=== PATIENT | female | born 1950 | race Caucasian/White ===

== ENCOUNTER → 2017-07-24 | Outpatient (CLI) | payer MEDICARE, OTHER ==
[~2017-07-24] MED LIST: ALEV1TAB PO; ASPI81TA85 PO; COUM2.5T17 PO; HYDR-3713 PO; LOPR1TAB6 PO; MELA10TA4 PO; MULT1TAB9 PO; SYNT50TA PO; TUMERIC PO
--- NOTE | 2017-07-24 11:11 | REP ---
CHEST, TWO VIEWS: There is no evidence of acute infiltrate. No pleural effusion is seen. The heart is normal in size. The mediastinal silhouette is unremarkable. The visualized osseous structures are intact. There are degenerative changes of the spine. IMPRESSION: No acute pulmonary disease. Signed by Jerad Shin MD 07/24/2017 01:25 P
[2017-07-24 11:47] LABS: MEAN CORPUSCULAR HGB CONC 32.1 g/dl (32.0-36.5); MEAN CORPUSCULAR VOLUME 90.5 fl (80.0-96.0); PLATELET COUNT, AUTOMATED 198 10^3/uL (150-450); RED CELL DISTRIBUTION WIDTH 12.5 % (11.5-14.5); WHITE BLOOD COUNT 6.9 10^3/uL (4.0-10.0)
[2017-07-24 11:59] LABS: INR 1.06
[2017-07-24 12:17] LABS: ALBUMIN 4.4 GM/DL (3.2-5.2); ALBUMIN/GLOBULIN RATIO 1.42 (1.00-1.93); ALKALINE PHOSPHATASE 68 U/L (45-117); ALT/SGPT 29 U/L (12-78); ANION GAP 5 MEQ/L (8-16); AST/SGOT 22 U/L (7-37); BILIRUBIN,TOTAL 0.6 MG/DL (0.2-1.0); BLOOD UREA NITROGEN 17 MG/DL (7-18); CALCIUM LEVEL 9.5 MG/DL (8.8-10.2); CARBON DIOXIDE LEVEL 33 MEQ/L (21-32); CHLORIDE LEVEL 103 MEQ/L (98-107); CREATININE FOR GFR 0.73 MG/DL (0.55-1.02); GLOMERULAR FILTRATION RATE > 60.0 (>45); GLUCOSE, FASTING 92 MG/DL (80-110); POTASSIUM SERUM 4.5 MEQ/L (3.5-5.1); SODIUM LEVEL 141 MEQ/L (136-145); TOTAL PROTEIN 7.5 GM/DL (6.4-8.2)
[2017-07-24 12:20] LABS: ERYTHROCYTE SEDIMENTATION RATE 7 mm/hr (0-30)
--- NOTE | 2017-07-25 06:43 | ECGEPIP ---
Stationary ECG Study [facility] Test Date: 2017-07-24 Pat Name: BISI HOLLIS Department: Room: - Gender: F Re Recording Mixer: CRISTIAN : 1950 Requested By: Shelley Hutson Order Number: [id number] Reading MD: Barry Hutchins Measurements Intervals [place] Rate: 64 P: 64 OR: 165 QRS: 61 QRSD: 94 T: 66 QT: 397 QTc: 411 Interpretive Statements SINUS RHYTHM Comparison tracing not on file Electronically Signed On 07-25-2017 6:43:15 EDT by Barry Hutchins
== END ==
LOC: M ADMPAT 09:34
PROVIDERS: ATTEND Orthopaedic Surgery
DX: Z01.818 Encounter for other preprocedural examination (principal); M17.12 Unilateral primary osteoarthritis, left knee; Z79.899 Other long term (current) drug therapy

== ENCOUNTER 2017-08-07 07:30 | Inpatient (IN) | payer MEDICARE, OTHER ==
[2017-07-24 10:07] VITALS: BP 122/78
--- NOTE | 2017-07-27 17:56 | CR ---
DATE OF CONSULTATION: 07/27/[address] Ladd thank you for asking me to see Ms. Jimena Gutierrez in consultation prior to her total left TKA. She is as you know a 67-year-old female who was enjoyed quite good health and is very active, but has a history of hypothyroidism, palpitations and presents for preop optimization today. The patient reports she continues to be very active. She has occasional palpitations but she does not get lightheaded, dizzy chest pain or short of breath with it. She has had a full cardiac evaluation in 2016, which showed no significant pathology and the patient was felt to be at low risk for cardiovascular complications. The patient reports progressive disability from left knee. She can walk and do whatever she wants but she must do it slowly and cautiously. She has been to physical therapy, shots and pain and disability have progressed. The patient does take an Aleve P.M. at bedtime. This does help her sleep. The patient is on the metoprolol for palpitations and has been on this for many years. Patient has history of hyperlipidemia, takes fish oil for this. The patient does have other arthralgias, myalgias. She is just established with Dr. Roper and presents with a prescription for an extensive blood draw for further evaluation of her arthritic symptoms. She reports she discontinue the glucosamine, chondroitin and is replaced with Tumeric. REVIEW OF SYSTEMS: Otherwise negative. Denying fevers or chills, chest pain or shortness of breath, nausea, vomiting. PAST MEDICAL HISTORY: 1. History of anemia, negative evaluation. 2. History of leukopenia, negative Hem/Onc eval. 3. Fibrocystic breast disease. Status post fibroid cyst aspiration Dr. Torres. 4. Palpitations, status post electrocardiogram, chest x-ray echo 2015 with cardiology with no pathology found. 5. Tobacco cessation 07/2009. 6. Low back pain secondary to disk herniation 1995. 7. Hysterectomy with left hysterectomy secondary to ovarian cyst and bleeding. 8. Malignant melanoma surgically removed by Dr. Rodriguez. Follows with dermatology regularly. 9. Osteoporosis. 10. Right bunion and bunionectomy 08/04. 11. Left knee a OA status post laparoscopic her status post arthroscopic surgery January 2016. 12. Hyperlipidemia. 13. Insomnia. PATIENT'S MEDICATIONS: She is on Tumeric daily, melatonin at bedtime Aleve p.m. at bedtime, levothyroxine daily, Restasis eye drops, lubricating tears eye drops, multivitamin daily, baby aspirin daily, metoprolol ER 25 daily. ALLERGIES: The patient's drug allergies MACRODANTIN. FAMILY HISTORY: Father at 72 from heart. Mom was in her 90s and had hypothyroidism and depression. A brother had heart disease in his 50s. A sister had heart disease in her 70s and hypothyroidism. Two grandparents in 60s of heart disease. SOCIAL HISTORY: Quit smoking at age 59 after 27 years of one pack a week. Retired from real estate. Consumes about four glasses of wine a week. PHYSICAL EXAMINATION: Thin female appearing younger than her stated age. Vital signs are weight 138 with a BMI of 22.7, blood pressure 116/68 with a heart rate of 75, O2 sat is 97%. HEENT exam: Head is normocephalic. Neck is supple. Pupils equal, reactive to light. Extraocular movements are intact. Conjunctivae not injected. Sclerae are anicteric. Vision grossly normal. Tympanic membranes, external auditory canals are normal. Tongue is midline. Posterior pharynx without inflammation. Neck is supple. No thyromegaly, JVD or carotid bruits. RESPIRATORY: Slight decrease in breath sounds throughout mild kyphosis. BREASTS: Exam deferred. CARDIOVASCULAR: Regular rate and rhythm, early soft systolic murmur. ABDOMEN: Soft, nontender. No hepatosplenomegaly. GYNECOLOGIC: Deferred. EXTREMITIES: She has some quite advanced arthritic changes of some of her DIP joints. NEUROLOGIC: Alert and oriented. Cranial nerves II-XII intact. LABORATORY DATA: 07/27/2017 and TSH is 3.95. 07/24/2017 normal PT/PTT. Med profile, liver panel, CBC, UA, urine culture, nasal culture. Chest x-ray shows no acute pathology. EKG 07/24/2017 normal sinus rhythm rate of 64, axis of 61. No late R-wave progression, some repolarization changes but no atrial or ventricular hypertrophy. EKG is compared to an EKG from 02/11/2016 with no significant change. IMPRESSION: Ms. Jimena Gutierrez is a 67-year-old female with cardiovascular risk factors positive for age, hyperlipidemia, is at low risk of cardiovascular complications and is felt to be optimized for the proposed surgical intervention. Risk can be further minimized by the following recommendations: 1. Hypothyroid. Take Levoxyl the levothyroxine a.m. of surgery. 2. Palpitations controlled. Take metoprolol as usual the evening prior to surgery. 3. Hyperlipidemia, aspirin, fish oil on hold 7 days before surgery. 4. Approved the use of Benadryl and melatonin as needed for sleep the evening prior to surgery. 5. Osteoporosis. Calcium and D on hold. 6. Osteoarthritis. NSAIDs on hold 7 days prior to surgery. Thank you very much for this consultation. Please call with questions or concerns.
--- NOTE | 2017-08-01 16:54 | HPE ---
DATE OF ADMISSION: 08/07/2017 CHIEF COMPLAINT: Left knee pain. HISTORY OF PRESENT ILLNESS: This is a pleasant 67-year-old female with progressively worsening left knee pain and stiffness. She has failed to improve with conservative treatment. She has elected for surgery for her continued symptoms. She has pain with weightbearing activities and activities of daily living. X-rays of her knee are notable for advanced osteoarthritis of the left knee joint. She has consented for a left total knee arthroplasty by Dr. Haresh Ladd. Medical optimization was performed by Dr. Lebron. ALLERGIES: MACRODANTIN. CURRENT MEDICATIONS: - Toprol 50 mg a day - thyroxine 50 mg a day - multivitamin - baby aspirin - turmeric PAST MEDICAL HISTORY: Includes hypothyroidism. PAST SURGICAL HISTORY: Includes hysterectomy, microdisdectomy, and a bunionectomy. SOCIAL HISTORY: This patient is retired. Does not smoke. Occasionally drinks alcohol. FAMILY HISTORY: Noncontributory. REVIEW OF SYSTEMS: This patient denies chest pain, heart palpitations, cough, wheezing, difficulty breathing and shortness of breath. She denies abdominal pain, nausea, vomiting, diarrhea or constipation. She denies recent upper respiratory infection or urinary tract infection symptoms. She does complain of persistent pain in her left knee. PHYSICAL EXAMINATION: General: She is a well-nourished, well-developed, in no acute distress, alert female patient. She ambulates with a moderate limp favoring the left lower extremity. She is not using assistive devices. Vital signs: She is 65 inches tall, weighs 140 pounds with a temperature of 99, pulse of 78, respirations of 16, blood pressure 116/68. Neck was supple without adenopathy or jugular venous distention. Lungs were clear to auscultation without rales or wheeze throughout. Heart: Regular rate and rhythm. Abdomen: Bowel sounds were present. Extremities: Examination of the knee revealed intact skin. She had decreased range of motion secondary to pain and stiffness. The limb is neurovascularly intact. LABORATORY DATA: Chest x-ray showed no acute cardiopulmonary disease processes. EKG showed sinus rhythm at 64 beats per minute. UA was within normal limits with a specific gravity of 1.003. Prothrombin time 13.9, INR 1.06, glucose 92, BUN 17, creatinine 0.73, sodium 141, potassium 4.5. CBC was within normal limits. Sedimentation rate was 7. Urine culture showed no growth and nasal and sinus culture showed normal marli. IMPRESSION: Symptomatic osteoarthritis of the left knee joint. PLAN: Consented for a left total knee arthroplasty by Dr. Haresh Ladd.
[2017-08-07] VITALS (7 sets, daily range): BP systolic 78–142; BP diastolic 60–82; O2SAT 97
[~2017-08-07] VITALS: Ht 165.1 cm; Wt 62.1 kg
[~2017-08-07 07:30] MED LIST changes: -COUM2.5T17 PO; -HYDR-3713 PO
[2017-08-07] MEDS ORDERED: LR 1,000 ML IV ONE (09:45)
[2017-08-07] MEDS ORDERED: ACETAMINOPHEN 500 MG TAB PO ONE (09:45)
[2017-08-07] MEDS ORDERED: MIDAZOLAM INJ 2 MG/2 ML VIAL (J2250) As Ordered ONE ×2 (11:56→12:59)
[2017-08-07] MEDS ORDERED: PROPOFOL 200 MG/20 ML VIAL As Ordered ONE (11:56)
[2017-08-07] MEDS ORDERED: fentaNYL 100 MCG/2 ML INJECTION (J3010) As Ordered ONE ×2 (11:56→12:59)
[2017-08-07] MEDS ORDERED: dexameTHASONE 4 MG/ML 1ML VIAL (J1100) As Ordered ONE (11:56)
[2017-08-07] MEDS ORDERED: LIDOCAINE 2% INJ 100 MG/5 ML SDV (FOR ANES.) As Ordered ONE (11:56)
[2017-08-07] MEDS ORDERED: ONDANSETRON 4MG/2ML VIAL (J2405) As Ordered ONE (11:56)
[2017-08-07] MEDS ORDERED: BUPIVACAINE HCL 0.25% 30 ML VIAL As Ordered ONE (12:49)
[2017-08-07] MEDS ORDERED: TRANEXAMIC ACID 100 MG/ML 10ML VIAL As Ordered ONE (12:49)
[2017-08-07] MEDS ORDERED: EPINEPHrine INJ 1 MG/ML 1ML AMP As Ordered ONE (12:49)
[2017-08-07] MEDS ORDERED: BUPIVACAINE LIPOSOME/PF 1.3% 20 ML VIAL (13.3MG/ML)(EXPAREL) As Ordered ONE (12:49)
[2017-08-07] MEDS ORDERED: ceFAZolin 1GM INJ (J0690) As Ordered ONE (12:49)
[2017-08-07] MEDS ORDERED: MIDAZOLAM INJ 2 MG/2 ML VIAL (J2250) IV ONE (14:00)
[2017-08-07] MEDS ORDERED: fentaNYL 100 MCG/2 ML INJECTION (J3010) IV ONE (14:00)
[2017-08-07] MEDS ORDERED: PHENYLephrine HCL 500 MCG/5 ML (100MCG/ML) SYRINGE (J2370) As Ordered ONE (14:39)
[2017-08-07] MEDS ORDERED: ePHEDrine SULFATE 25 MG/5 ML(5MG/ML) SYRINGE As Ordered ONE (15:06)
[2017-08-07] MEDS ORDERED: ROPIvacaine 0.5% 30 ML INJECTION (J2795) ONE (15:28)
[2017-08-07] MEDS ORDERED: dexameTHASONE 10 MG/1 ML VIAL PRES.FREE (J1100) ONE (15:28)
[2017-08-07] MEDS ORDERED: MORPHINE 1MG/ML IN 0.9% NACL 100ML IV BAG As Ordered ONE (15:51)
[2017-08-07] MEDS ORDERED: LR 1,000 ML IV SCH ×2 (16:15→16:30)
[2017-08-07] MEDS ORDERED: fentaNYL 100 MCG/2 ML INJECTION (J3010) IV PRN (16:15)
[2017-08-07] MEDS ORDERED: PERCOCET 5MG/325MG TAB PO PRN (16:15)
[2017-08-07] MEDS ORDERED: ONDANSETRON 4MG/2ML VIAL (J2405) IV PRN ×2 (16:15→16:30)
[2017-08-07] MEDS ORDERED: METOCLOPRAMIDE INJ 10MG/2ML VIAL (J2765) IV PRN (16:15)
[2017-08-07] MEDS ORDERED: MEPERIDINE INJ 25 MG/ML VIAL (J2175) IV PRN (16:15)
[2017-08-07] MEDS ORDERED: diphenhydrAMINE INJ 50MG/ML VIAL (J1200) IV PRN (16:30)
[2017-08-07] MEDS ORDERED: NALOXONE INJ 0.4 MG/1 ML VIAL (J2310) IV PRN (16:30)
[2017-08-07] MEDS ORDERED: EPIDURAL/PCA KEYS XX PRN (16:30)
[2017-08-07] MEDS ORDERED: NALBUPHINE HCL 10 MG/ML AMP (J2300) IV PRN (16:30)
[2017-08-07] MEDS ORDERED: MORPHINE 1MG/ML IN 0.9% NACL 100ML IV BAG IV PRN (16:30)
[2017-08-07] MEDS ORDERED: ACETAMINOPHEN TAB 650MG DOSE (2X325MG) PO PRN (16:30)
[2017-08-07] MEDS ORDERED: FLEET ENEMA PR PRN (16:30)
--- NOTE | 2017-08-07 18:21 | IPNPDOC ---
Subjective Date Seen The patient was seen on 08/07/17. Subjective Chief Complaint/HPI The patient is a 67-year-old female admitted with a reason for visit of Left Knee Arthritis. Events since last encounter Feeling well, no chest pain, not short of breath, ordered dinner. Pulmonary: Denies: Dyspnea, Cough Cardiovascular: Denies: Chest Pain Gastrointestinal: Denies: Nausea, Vomiting, Abdominal Pain Objective Physical Examination General Exam: Positive: Alert, No Acute Distress Chest Exam: Positive: Clear to auscultation, Negative: Rales, Rhonchi, Wheezing Heart Exam: Positive: Rate Normal, Regular Rhythm Abdomen Exam: Positive: BS Hypoactive, Soft, Negative: Tenderness Assessment /Plan Problems (1) Arthritis of left knee Problem Text: S?P TKA. Pain management, GI regimen, dvt prophylaxis, activity, discharge per ortho (2) Hypothyroid Status: Chronic Problem Text: on synthroid (3) Hyperlipemia Status: Chronic Problem Text: holding asa and fish oil (4) Palpitation Status: Chronic Problem Text: non currently- continue perioperative beta blockade Plan/VTE VTE Prophylaxis Ordered?: Yes VS, I&O, 24H, Fishbone Vital Signs/I&O Vital Signs Date Time Temp Pulse Resp B/P (MAP) Pulse Ox O2 Delivery O2 Flow Rate FiO2 08/07/17 17:45 97.0 87 12 120/70 (87) 100 Nasal Cannula 2.0 I&O- Last 24 Hours up to 6 AM 08/08/17 06:00 Intake Total 1220 ml Balance 1220 ml CAROLYN BERMAN MD Aug 07, 2017 18:21
--- NOTE | 2017-08-07 18:39 | RO ---
DATE OF PROCEDURE: 08/07/2017 PREPROCEDURE DIAGNOSIS: Left knee degenerative arthritis. POSTPROCEDURE DIAGNOSIS: Left knee degenerative arthritis. PROCEDURE: Left total knee arthroplasty using a size 4 narrow cruciate retaining femoral component with a size 3 tibial tray with a 10 mm rotating platform polyethylene insert and a 35 mm polyethylene button. All components were cemented. The prosthesis was made by [employer]. It was a PFC knee. SURGEON: Dr. Shelley Ladd STERILE TECHNICIAN: Mr. Tr Hanson ANESTHESIA: Spinal with left femoral nerve block. COMPLICATIONS: None. SPECIMENS: Joint surface. ESTIMATED BLOOD LOSS: Less than 20 mL. DESCRIPTION OF PROCEDURE: Antibiotics were given intravenously preoperatively, then successful left femoral nerve block and then a spinal anesthetic was induced. Tourniquet was placed on the left upper thigh and not inflated. Left lower extremity was carefully prepped and draped in the usual sterile fashion and then elevated. Then, after appropriate time-out, the tourniquet was inflated, then a longitudinal incision was made for a medial parapatellar approach to the knee. Bovie cautery was used to coagulate crossing vessels. Medial parapatellar arthrotomy was performed and subperiosteal dissection around the proximal, medial and lateral tibial plateaus was performed. Then, we everted the patella and flexed the knee and debrided the anterior cruciate ligament (ACL). Drill was placed down the center of the femoral canal, followed by the distal femoral cutting block set at 5 degree valgus cut at 10 mm resection level for a left knee. Block was pinned in position. Distal femoral cut performed. AP sizing jig measured for a size 4. It was pinned in position followed by the 3-degree external rotation block and then the 4-in-1 block applied. Then, the anterior, posterior, chamfer cuts performed, taking great care to protect the surrounding soft tissues. We then exposed the proximal tibia and used the extramedullary alignment jig to estimate being parallel to the mechanical axis of the tibia. We referenced off the medial tibial condyle, 4 mm resection level. It was pinned in position and then the extramedullary belen confirmed that we appeared to be parallel to the mechanical axis. Proximal tibial osteotomy was then performed, and then we placed the lamina geophysical prospector laterally and performed a completion medial meniscectomy, debridement of the posteromedial osteophytes. We then placed the lamina geophysical prospector medially and performed a completion lateral meniscectomy and debridement of the posterolateral osteophytes. We then used the spacer block and the 10 mm actually fit very nicely with good symmetry between the flexion and extension gaps. Good stability to varus/valgus AP stress testing. We then exposed the proximal tibia, sized for a #3 tibial tray, which was pinned in position, followed by the reamer and broach and then the trial polyethylene, then the femoral component was applied and brought the knee into extension, everted the patella, performed patellar osteotomy, drilled the lug holes and sized for a 35 button and then the trial prosthesis was applied and the patellofemoral tracking was anatomic. We drilled the lug holes for the femur and removed all of the trial components, injected Exparel in the periosteum of the femur and tibia, as well as the capsular incisions and then Mr. Hanson mixed the cement on the back table as I prepared the bony surfaces for cementing with a copious amount of pulsatile lavage irrigant solution. Then, after everything had been thoroughly dried, we cemented the tibial tray and removed excess cement, placed the polyethylene, then cemented the femoral component, removed excess cement, brought the knee into extension, everted the patella and then cemented the patellar button, held it with a clamp and then removed the excess cement. As the cement was hardening, I copiously pulsatile lavage irrigated out the knee joint and then applied the tranexamic acid and then began closing the arthrotomy at the apex with two #1 PDS sutures. The medial parapatellar area was closed with a #1 PDS suture, then the capsule was closed with a running #1 Stratafix, tourniquet released, irrigated again, closed the deep subdermal tissues with interrupted #2-0 PDS suture and the subcuticular closure was made, covered by the fibrin glue was used to close the skin. A dry sterile bulky dressing was applied, then she was transferred to the recovery room in stable condition. Mr. Hanson was critical to the success of the procedure by helping to prepare the patient for surgery, helped with appropriate soft tissue retraction and manipulating the leg as needed so I could perform the operation smoothly and efficiently, helped to close the wound, amongst many other tasks.
[2017-08-07] MEDS: METOPROLOL SUCC *XL* 25MG TAB (TopROL *XL*) PO SCH (20:33)
[2017-08-07] MEDS ORDERED: WARFARIN SOD 5 MG TAB PO ONE (21:00)
[2017-08-08 02:00] VITALS: BP 137/58
[2017-08-08 06:00] VITALS: BP 121/73
[2017-08-08] MEDS: LEVOTHYROXINE 50MCG TABLET (0.05MG) PO SCH (06:10)
[2017-08-08] MEDS ORDERED: PERCOCET 5MG/325MG TAB PO PRN (06:30)
[2017-08-08 07:42] LABS: MEAN CORPUSCULAR HEMOGLOBIN 29.6 pg (27.0-33.0); MEAN CORPUSCULAR HGB CONC 32.6 g/dl (32.0-36.5); MEAN CORPUSCULAR VOLUME 90.7 fl (80.0-96.0); PLATELET COUNT, AUTOMATED 152 10^3/uL (150-450); WHITE BLOOD COUNT 9.2 10^3/uL (4.0-10.0)
[2017-08-08 08:03] LABS: INR 0.97
[2017-08-08 08:12] LABS: ANION GAP 4 MEQ/L (8-16); BLOOD UREA NITROGEN 16 MG/DL (7-18); CALCIUM LEVEL 8.6 MG/DL (8.8-10.2); CARBON DIOXIDE LEVEL 30 MEQ/L (21-32); CHLORIDE LEVEL 105 MEQ/L (98-107); CREATININE FOR GFR 0.73 MG/DL (0.55-1.02); GLOMERULAR FILTRATION RATE > 60.0 (>45); GLUCOSE, FASTING 143 MG/DL (80-110); POTASSIUM SERUM 4.4 MEQ/L (3.5-5.1); SODIUM LEVEL 139 MEQ/L (136-145)
[2017-08-08] MEDS: MIRALAX *UNIT DOSE* 17GM PACKET PO SCH ×2 (08:30→09:00)
[2017-08-08] MEDS: MOM 30ML SUSPENSION UDC PO SCH ×2 (08:30→09:00)
[2017-08-08] MEDS: SENOKOT S TAB PO SCH ×2 (08:31→20:10)
[2017-08-08] MEDS: PERCOCET 5MG/325MG TAB PO PRN ×2 (08:31→12:30)
[2017-08-08] MEDS: ONDANSETRON 4 MG TAB (S0181) PO PRN (08:31)
[2017-08-08] MEDS ORDERED: ONDANSETRON 4MG/2ML VIAL (J2405) IV ONE (08:45)
[2017-08-08 10:00] VITALS: BP 117/69
--- NOTE | 2017-08-08 11:47 | IPNPDOC ---
Subjective Date Seen The patient was seen on 08/08/17. Subjective Chief Complaint/HPI The patient is a 67-year-old female admitted with a reason for visit of Left Knee Arthritis. Events since last encounter complaining of vomiting this morning and also last night , pain is controlled, no abdominal pain , no diarrhea, no fever or chills, no chest pain or SOB. Objective Physical Examination General Exam: Positive: Alert, No Acute Distress Eye Exam: Positive: PERRLA, Conjunctiva & lids normal, EOMI, Negative: Sclera icteric ENT Exam: Positive: Atraumatic, Mucous membr. moist/pink, Pharynx Normal Neck Exam: Positive: Supple, Negative: JVD, thyromegaly Chest Exam: Positive: Clear to auscultation, Negative: Rales, Rhonchi, Wheezing Heart Exam: Positive: Rate Normal, Regular Rhythm Abdomen Exam: Positive: BS Hypoactive, Soft, Negative: Tenderness Assessment /Plan Problems (1) S/P total knee arthroplasty Problem Text: For advanced osteoarthritis. Pain management, GI regimen, dvt prophylaxis, activity, discharge per ortho (2) Hypothyroid Status: Chronic Problem Text: on synthroid (3) Hyperlipemia Status: Chronic Problem Text: holding asa and fish oil (4) Palpitation Status: Chronic Problem Text: non currently- continue perioperative beta blockade Plan/VTE VTE Prophylaxis Ordered?: Yes VS, I&O, 24H, Epifaniobone Vital Signs/I&O Vital Signs Date Time Temp Pulse Resp B/P (MAP) Pulse Ox O2 Delivery O2 Flow Rate FiO2 08/08/17 10:00 98.1 71 13 117/69 (85) 99 Room Air 08/08/17 06:00 2.0 I&O- Last 24 Hours up to 6 AM 08/09/17 06:00 Intake Total 170 ml Balance 170 ml Laboratory Data 24H LABS Laboratory Tests 2 08/08/17 07:34: Nucleated Red Blood Cells % (auto) 0.0, Prothrombin Time 13.0, Prothromb Time International Ratio 0.97, Anion Gap 4L, Glomerular Filtration Rate > 60.0, Blood Urea Nitrogen 16, Creatinine 0.73, Sodium Level 139, Potassium Level 4.4, Chloride Level 105, Carbon Dioxide Level 30, Calcium Level 8.6L CBC/BMP Laboratory Tests 08/08/17 07:34 Red Blood Count 3.55 L, Mean Corpuscular Volume 90.7, Mean Corpuscular Hemoglobin 29.6, Mean Corpuscular Hemoglobin Concent 32.6, Red Cell Distribution Width 13.0, Calcium Level 8.6 L SIDDHARTHA HERNANDEZ MD Aug 08, 2017 11:47
--- NOTE | 2017-08-08 12:45 | REP ---
Clinical: Status post replacement. Technique: AP and cross-table lateral views of the left knee. Findings: Femoral and tibial hardware appears intact and normal in position and appearance. Overlying postsurgical changes include diffuse soft tissue swelling and subcutaneous emphysema. Impression: Normal appearance to the prosthetic hardware. Overlying postsurgical changes including swelling and subcutaneous emphysema. Signed by Reuben Finn MD 08/08/2017 12:37 P
[2017-08-08 14:00] VITALS: BP 100/60
[2017-08-08] MEDS: ONDANSETRON 4MG/2ML VIAL (J2405) IV PRN ×2 (16:01→20:11)
[2017-08-08] MEDS ORDERED: WARFARIN SOD 5 MG TAB PO ONE (17:00)
[2017-08-08] MEDS ORDERED: SCOPOLAMINE 1.5 MG TRANSDERMAL TOP SCH (18:00)
[2017-08-08] MEDS ORDERED: traMADol 50 MG TAB As Ordered ONE (18:51)
[2017-08-08] MEDS ORDERED: SCOPOLAMINE 1.5 MG TRANSDERMAL As Ordered ONE (18:51)
[2017-08-08] MEDS: traMADol 50 MG TAB PO PRN (18:57)
[2017-08-08] MEDS: LR 1,000 ML IV SCH (18:58)
[2017-08-08 20:11] VITALS: BP 116/66
[2017-08-08] MEDS: METOPROLOL SUCC *XL* 25MG TAB (TopROL *XL*) PO SCH (20:11)
[2017-08-08 22:00] VITALS: BP 116/66
[2017-08-08] MEDS ORDERED: traMADol 50 MG TAB PO ONE (22:25)
[2017-08-08] MEDS ORDERED: CALCIUM CARBONATE 500 MG CHEW U/D PO ONE (22:25)
[2017-08-09] MEDS: traMADol 50 MG TAB PO PRN (00:06)
[2017-08-09] MEDS ORDERED: MORPHINE 2 MG/ML 1ML SYRINGE IV ONE (02:00)
[2017-08-09] MEDS: LEVOTHYROXINE 50MCG TABLET (0.05MG) PO SCH (04:28)
[2017-08-09] MEDS: ONDANSETRON 4MG/2ML VIAL (J2405) IV PRN (04:29)
[2017-08-09] MEDS: NORCO, ANEXSIA 5/325MG TABLET (HYDROcodone/ACETAMINOPHEN) PO PRN ×3 (04:30→13:08)
[2017-08-09 06:00] VITALS: BP 131/73
[2017-08-09 07:02] LABS: MEAN CORPUSCULAR HEMOGLOBIN 29.7 pg (27.0-33.0); MEAN CORPUSCULAR HGB CONC 32.6 g/dl (32.0-36.5); MEAN CORPUSCULAR VOLUME 91.1 fl (80.0-96.0); PLATELET COUNT, AUTOMATED 137 10^3/uL (150-450); RED CELL DISTRIBUTION WIDTH 13.1 % (11.5-14.5); WHITE BLOOD COUNT 8.9 10^3/uL (4.0-10.0)
[2017-08-09 07:25] LABS: ANION GAP 5 MEQ/L (8-16); BLOOD UREA NITROGEN 16 MG/DL (7-18); CALCIUM LEVEL 8.7 MG/DL (8.8-10.2); CARBON DIOXIDE LEVEL 30 MEQ/L (21-32); CHLORIDE LEVEL 104 MEQ/L (98-107); CREATININE FOR GFR 0.63 MG/DL (0.55-1.02); GLOMERULAR FILTRATION RATE > 60.0 (>45); GLUCOSE, FASTING 123 MG/DL (80-110); POTASSIUM SERUM 4.1 MEQ/L (3.5-5.1); SODIUM LEVEL 139 MEQ/L (136-145)
[2017-08-09 07:37] LABS: INR 1.45
[2017-08-09] MEDS ORDERED: COUM2.5T17 PO (09:05)
[2017-08-09] MEDS ORDERED: HYDR-3713 PO (09:05)
[2017-08-09] MEDS: LR 1,000 ML IV SCH (09:31)
[2017-08-09] MEDS: MIRALAX *UNIT DOSE* 17GM PACKET PO SCH (09:31)
[2017-08-09] MEDS: SENOKOT S TAB PO SCH (09:31)
[2017-08-09] MEDS: MOM 30ML SUSPENSION UDC PO SCH (09:31)
[2017-08-09] MEDS: ONDANSETRON 4 MG TAB (S0181) PO PRN (09:35)
[2017-08-09 14:00] VITALS: BP 125/76
[2017-08-09] MEDS ORDERED: WARFARIN SOD 5 MG TAB PO ONE (17:00)
--- NOTE | 2017-08-11 16:51 | DSES ---
DATE OF ADMISSION: 08/07/2017 DATE OF DISCHARGE: 08/09/2017 ADMISSION DIAGNOSIS: Osteoarthritis left knee. OTHER DIAGNOSES: Hypothyroidism, elevated lipids, palpitations. DISCHARGE DIAGNOSIS: Osteoarthritis left knee status post left total knee arthroplasty. OPERATION PERFORMED: Left total knee arthroplasty. HISTORY: This a pleasant 67-year-old female patient with progressively worsening left knee pain and stiffness. She failed to improve with conservative management. She was admitted for elective knee replacement on the left side. HOSPITAL COURSE: The patient was admitted on day of surgery and underwent a left total knee arthroplasty which was uneventful. She did well in the postoperative period and her hospital course was without complications. She was up with physical therapy per their protocol and her pain was controlled. On day of discharge she was doing well, weightbearing as tolerated on her left lower extremity. She will use adjusted dose Coumadin and JEF stockings for 30 days postoperatively for DVT prophylaxis. She will resume her preoperative medications and diet. She was given instructions to include but not limited to wound monitoring and activity limitations. She will followup in our office in 10-14 days. She will resume her preoperative medications and diet and she will use oral pain medications for pain control. Please refer to the medical record further details.
== END 2017-08-09 15:50 | disposition home health service (06) | DRG 470 ==
LOC: M OR 09:36 → M MS5PR 17:30
PROVIDERS: ADMIT Orthopaedic Surgery; ATTEND Orthopaedic Surgery
PROC: 0SRD0J9 Replacement of Left Knee Joint with Synthetic Substitute, Cemented, Open Approach (ICD-10-PCS; principal; 2017-08-07 14:45)
DX: M17.12 Unilateral primary osteoarthritis, left knee (principal); E03.9 Hypothyroidism, unspecified; M81.0 Age-related osteoporosis without current pathological fracture; M54.9 Dorsalgia, unspecified; E78.5 Hyperlipidemia, unspecified; Z85.820 Personal history of malignant melanoma of skin; Z90.710 Acquired absence of both cervix and uterus; Z79.899 Other long term (current) drug therapy; Z88.8 Allergy status to other drugs, medicaments and biological substances; Z87.891 Personal history of nicotine dependence

== ENCOUNTER → 2017-08-28 | Outpatient (REF) | payer MEDICARE, OTHER ==
[~2017-08-28] MED LIST changes: +COUM2.5T17 PO; +HYDR-3713 PO
[2017-08-28 14:08] LABS: INR 1.45
== END ==
LOC: M LABDRAW1 11:43
PROVIDERS: ATTEND Orthopaedic Surgery
DX: Z79.01 Long term (current) use of anticoagulants (principal); Z47.1 Aftercare following joint replacement surgery; Z96.652 Presence of left artificial knee joint

== ENCOUNTER → 2017-08-31 | Outpatient (REF) | payer MEDICARE, OTHER ==
[2017-08-31 12:14] LABS: INR 1.55
== END ==
LOC: M LABDRAW1 10:40
PROVIDERS: ATTEND Orthopaedic Surgery
DX: Z47.1 Aftercare following joint replacement surgery (principal); Z96.652 Presence of left artificial knee joint; Z79.01 Long term (current) use of anticoagulants

== ENCOUNTER → 2017-09-04 | Outpatient (REF) | payer MEDICARE, OTHER ==
[2017-09-04 13:09] LABS: INR 1.61
== END ==
LOC: M LABDRAW1 11:36
PROVIDERS: ATTEND Orthopaedic Surgery
DX: Z96.652 Presence of left artificial knee joint (principal); Z47.1 Aftercare following joint replacement surgery; Z79.01 Long term (current) use of anticoagulants

== ENCOUNTER → 2017-12-12 | Outpatient (CLI) | payer MEDICARE, OTHER | LOC: M WHC 11:39 | DX: Z13.820 Encounter for screening for osteoporosis (principal); M81.0 Age-related osteoporosis without current pathological fracture | CPT/HCPCS: 77080 ==

== ENCOUNTER → 2018-11-26 | Outpatient (REF) | payer MEDICARE, OTHER | LOC: M SFHCPLAZ 18:50 | PROVIDERS: ATTEND Dermatology | DX: D14.0 Benign neoplasm of middle ear, nasal cavity and accessory sinuses (principal) ==

== ENCOUNTER → 2019-08-26 | Outpatient (CLI) | payer MEDICARE, OTHER ==
--- NOTE | 2019-08-26 12:32 | REP ---
Clinical: Pelvic and perineal pain. Technique: Transvaginal ultrasound examination. Findings: The patient is noted to be status post total hysterectomy/ left oophorectomy. Right ovary is not visualized. No pelvic free fluid or mass lesion appreciated. Impression: Evidence of prior hysterectomy and oophorectomy. No obvious pelvic abnormality by ultrasound. Electronically Signed by Reuben Finn MD 08/26/2019 12:23 P
== END ==
LOC: M RAD 11:46
PROVIDERS: ATTEND Obstetrics & Gynecology
DX: R10.2 Pelvic and perineal pain (principal); Z90.710 Acquired absence of both cervix and uterus

== ENCOUNTER → 2020-06-25 | Outpatient (CLI) | payer MEDICARE, OTHER ==
[~2020-06-25] MED LIST changes: +ALLE180T33 PO; +APPLCAP PO; -ASPI81TA85 PO; +ASPI81TA86 PO; +LAST0.25 OU; +MAGN400C2 PO; +MELA10TA2 PO; +PREVAGEN PO; +REST0.05 OU; +RHOP0.02 OU
== END ==
LOC: M LABSMTC 11:01
PROVIDERS: ATTEND Anesthesiology
DX: Z01.812 Encounter for preprocedural laboratory examination (principal); Z20.828 Contact with and (suspected) exposure to other viral communicable diseases
CPT/HCPCS: C9803; U0003

== ENCOUNTER 2020-06-30 08:28 | Day surgery (SDC) | payer MEDICARE, OTHER ==
[~2020-06-30] VITALS: Ht 165.1 cm; Wt 59.0 kg
[~2020-06-30 08:28] MED LIST changes: +NS 1,000 ML IV ONE
[2020-06-30] MEDS ORDERED: propofoL 200 MG/20 ML VIAL As Ordered ONE (08:50)
[2020-06-30] MEDS ORDERED: LIDOCAINE 2% 100MG/5ML SDV (FOR ANES.) As Ordered ONE (08:50)
--- NOTE | 2020-06-30 10:08 | ROOR ---
Patient Name: Jimena Gutierrez Procedure Date: 06/30/2020 9:42 AM Date of : 1950 Age: 69 Room: [facility] Gender: Female Note Status: Finalized Procedure: Colonoscopy Indications: High risk colon cancer surveillance: Personal history of colonic polyps, Family history of colon cancer in a first-degree relative age 75 years Providers: Barry BAUM MD Referring MD: Melyssa Blevins Requesting Provider: Medicines: Monitored Anesthesia Care Complications: No immediate complications. Procedure: Pre-Anesthesia Assessment: - The heart rate, respiratory rate, oxygen saturations, blood pressure, adequacy of pulmonary ventilation, and response to care were monitored throughout the procedure. The Colonoscope was introduced through the anus and advanced to the cecum, identified by appendiceal orifice and ileocecal valve. The colonoscopy was performed without difficulty. The patient tolerated the procedure well. The quality of the bowel preparation was good. Findings: The perianal and digital rectal examinations were normal. The entire examined colon appeared normal on direct and retroflexion views. Impression: - Small internal hemorrhoids. - The entire examined colon is normal on direct and retroflexion views. - No specimens collected. Recommendation: - Repeat colonoscopy in 5 years for screening purposes. Barry Baum MD Barry BAUM MD 06/30/2020 10:08:13 AM Electronically signed by Barry BAUM MD Number of Addenda: 0 Note Initiated On: 06/30/2020 9:42 AM Estimated Blood Loss: Estimated blood loss: none.
[2020-06-30 10:31] VITALS: BP 130/70
== END 2020-06-30 10:31 | disposition home or self-care (01) ==
LOC: M OPP 08:28
PROVIDERS: ATTEND Internal Medicine Gastroenterology
DX: Z12.11 Encounter for screening for malignant neoplasm of colon (principal); Z86.010 Personal history of colon polyps; Z80.0 Family history of malignant neoplasm of digestive organs; K64.8 Other hemorrhoids; I10 Essential (primary) hypertension; E03.9 Hypothyroidism, unspecified; M81.0 Age-related osteoporosis without current pathological fracture; Z87.891 Personal history of nicotine dependence; Z88.8 Allergy status to other drugs, medicaments and biological substances; Z79.899 Other long term (current) drug therapy; Z82.49 Family history of ischemic heart disease and other diseases of the circulatory system

== ENCOUNTER → 2020-08-25 | Outpatient (CLI) | payer SELFPAY ==
[~2020-08-25] MED LIST changes: -NS 1,000 ML IV ONE
== END ==
LOC: M LABSMTC 13:40
PROVIDERS: ATTEND Pediatrics
DX: Z20.828 Contact with and (suspected) exposure to other viral communicable diseases (principal)

== ENCOUNTER → 2020-10-21 | Outpatient (CLI) | payer MEDICARE, OTHER | LOC: M LABSMTC 14:01 | PROVIDERS: ATTEND Family Medicine | DX: Z20.822 Contact with and (suspected) exposure to COVID-19 (principal) | CPT/HCPCS: C9803; U0003 ==

== ENCOUNTER → 2020-11-01 | Outpatient (REF) | payer MEDICARE, OTHER | LOC: M LAB REF 11:41 | PROVIDERS: ATTEND Physician Assistant Medical | DX: R19.4 Change in bowel habit (principal) ==

== ENCOUNTER → 2020-11-25 | Outpatient (CLI) | payer MEDICARE, OTHER ==
[~2020-11-25] MED LIST changes: +GASTROGRAFIN SOLUTION 30ML (Q9963) As Ordered ONE; +ISOVUE-370 76% 100ML VIAL As Ordered ONE
--- NOTE | 2020-11-25 15:06 | REP ---
INDICATION: LOWER ABD PAIN, ABD DISTENSION. COMPARISON: None TECHNIQUE: Axial contrast-enhanced images from the lung bases to the pubic symphysis using oral and 100 cc Isovue 370 intravenous contrast material. Delayed images of the abdomen along with coronal and sagittal reformations obtained. This CT examination was performed using the following dose reduction techniques: Automated exposure control, adjustment of mA and/or kv according to the patient's size, and the use of iterative reconstruction technique. FINDINGS: Lung bases are clear. Visualized heart and pericardium normal. Liver, spleen, pancreas, gallbladder, bilateral adrenal glands and kidneys are normal. Small 1.5 cm incidental left renal cyst noted. Mucosal thickening involving the rectosigmoid colon may represent an acute infectious/inflammatory colitis and should be correlated clinically. Remainder of the small and large bowel is grossly unremarkable. Normal terminal ileum and appendix identified in the right lower quadrant. Pelvis demonstrates normal bladder and evidence for prior hysterectomy. No ascites. No free air. No intraperitoneal or retroperitoneal adenopathy. Abdominal aorta and vasculature appear normal. Musculoskeletal structures are intact and without acute osseous abnormality. IMPRESSION: 1. Mucosal thickening involving the rectosigmoid colon suspicious for infectious/inflammatory colitis. Correlation is recommended. No associated bowel obstruction, perforation, ascites or drainable collection. <Electronically signed by Reuben Finn > 11/25/20 [id number]
== END ==
LOC: M RAD 13:03
PROVIDERS: ATTEND Physician Assistant Medical
DX: K63.89 Other specified diseases of intestine (principal); R10.30 Lower abdominal pain, unspecified; R14.0 Abdominal distension (gaseous)
CPT/HCPCS: 74177; Q9963; Q9967

== ENCOUNTER 2021-03-11 18:37 | Emergency (ER) | payer MEDICARE, OTHER ==
[~2021-03-11] VITALS: Ht 165.1 cm; Wt 61.0 kg
[~2021-03-11 18:37] MED LIST changes: -GASTROGRAFIN SOLUTION 30ML (Q9963) As Ordered ONE; -ISOVUE-370 76% 100ML VIAL As Ordered ONE
[2021-03-11] MEDS ORDERED: FLUORESCEIN OPHTH 1 MG STRIP XX ONE (18:55)
[2021-03-11] MEDS ORDERED: PROPARACAINE 0.5% OPHTH SOL 15ML XX ONE (18:55)
[2021-03-11] MEDS ORDERED: BOOSTRIX/ADACEL VACCINE (DIPHTH/PERTUSS/ACELL/TETANUS) 0.5ML SYR IM ONE (21:45)
[2021-03-11] MEDS ORDERED: ACETAMINOPHEN 500 MG TAB PO ONE (21:45)
[2021-03-11] MEDS ORDERED: DOXYCYCLINE HYCLATE 100MG TABLET PO ONE (22:25)
[2021-03-11] MEDS ORDERED: OFLOXACIN 0.3 % (OCUFLOX) OPTH SOL 5ML OD STA (22:28)
[2021-03-11] MEDS ORDERED: ISOVUE-370 76% 100ML VIAL As Ordered ONE (22:54)
[2021-03-11 23:04] LABS: BASO % 0.3 % (0.0-1.0); EOS % 0.3 % (0.0-3.0); HEMATOCRIT 44.6 % (36.0-47.0); HEMOGLOBIN 14.6 g/dl (12.0-15.5); LYMPH # 2.1 10^3/uL (1.5-5.0); LYMPH % 20.1 % (24.0-44.0); MEAN CORPUSCULAR HEMOGLOBIN 29.9 pg (27.0-33.0); MEAN CORPUSCULAR HGB CONC 32.7 g/dl (32.0-36.5); MEAN CORPUSCULAR VOLUME 91.2 fl (80.0-96.0); MONO # 0.7 10^3/uL (0.0-0.8); MONO % 6.6 % (2.0-8.0); NEUTROPHILS # 7.4 10^3/uL (1.5-8.5); NEUTROPHILS % 72.3 % (36.0-66.0); PLATELET COUNT, AUTOMATED 186 10^3/uL (150-450); RED BLOOD COUNT 4.89 10^6/uL (4.00-5.40); WHITE BLOOD COUNT 10.3 10^3/uL (4.0-10.0)
[2021-03-12] MEDS ORDERED: DOXY1CAP62 PO (00:24)
[2021-03-12] MEDS ORDERED: MOXI0.5S OD (00:25)
--- NOTE | 2021-03-12 00:27 | REPVR ---
PROCEDURE INFORMATION: Exam: CT Orbits With Contrast Exam date and time: 03/11/2021 11:01 PM Age: 70 years old Clinical indication: Other: RT eye discharge; Eye pain; Right; Additional info: Pain with eom's, R/O orbital cellulitis TECHNIQUE: Imaging protocol: Computed tomography images of the orbits with intravenous contrast. Radiation optimization: All CT scans at this facility use at least one of these dose optimization techniques: automated exposure control; mA and/or kV adjustment per patient size (includes targeted exams where dose is matched to clinical indication); or iterative reconstruction. Contrast material: ISO; Contrast volume: 75 ml; Contrast route: INTRAVENOUS (IV); COMPARISON: No relevant prior studies available. FINDINGS: Orbits: Mild asymmetric thickening and enhancement of the conjunctiva of the right orbit. Right globe and orbit are otherwise unremarkable. No postseptal orbital inflammatory changes. No mass or abscess. Paranasal sinuses: Clear. No air-fluid levels. Bones/joints: No acute fracture. Soft tissues: Mild right periorbital soft tissue swelling. No abscess. IMPRESSION: 1. Mild asymmetric thickening and enhancement of the conjunctiva of the right orbit. Possible conjunctivitis versus preseptal cellulitis. 2. No postseptal abscess or inflammatory changes. Electronically signed by: Ray Posadas On 03/12/2021 00:27:43 AM
[2021-03-12] MEDS ORDERED: CLIN150C15 PO (00:37)
[2021-03-12] MEDS ORDERED: CLINDAMYCIN 150MG CAPSULE PO ONE (00:45)
[2021-03-12 01:01] VITALS: BP 138/85
--- NOTE | 2021-03-12 06:36 | ED PDOC ---
Post-Departure Follow-Up ct orbit faxed to dr salmeron and dr chavez for fu Dionte Shoemaker MD Mar 12, 2021 06:36
== END 2021-03-12 01:13 | disposition home or self-care (01) ==
LOC: M ED 18:37
DX: H10.31 Unspecified acute conjunctivitis, right eye (principal); H40.9 Unspecified glaucoma; H20.00 Unspecified acute and subacute iridocyclitis; S05.01XA Injury of conjunctiva and corneal abrasion without foreign body, right eye, initial encounter; L03.213 Periorbital cellulitis; H20.051 Hypopyon, right eye; H40.051 Ocular hypertension, right eye; I48.91 Unspecified atrial fibrillation; E03.9 Hypothyroidism, unspecified; M81.0 Age-related osteoporosis without current pathological fracture; Z79.899 Other long term (current) drug therapy; Z88.8 Allergy status to other drugs, medicaments and biological substances
CPT/HCPCS: 70481; 80047; 85025; 90471; 90715; 99284; Q9967

== ENCOUNTER → 2021-07-23 | Outpatient (REF) | payer MEDICARE, OTHER ==
[~2021-07-23] MED LIST changes: +CLIN150C17 PO; +DOXY-443 PO; +MOXI0.5S OD
== END ==
LOC: M LAB REF 14:46
PROVIDERS: ATTEND Dermatology
DX: L81.4 Other melanin hyperpigmentation (principal); L57.0 Actinic keratosis

== ENCOUNTER → 2021-09-24 | Outpatient (REF) | LOC: M LABSMTC 10:31 | PROVIDERS: ATTEND Pediatrics | DX: Z11.52 Encounter for screening for COVID-19 (principal) ==

== ENCOUNTER → 2022-01-12 | Outpatient (REF) | payer MEDICARE, OTHER ==
[2022-01-12 21:00] LABS: FOLATE 6.8 NG/ML; THYROGLOBULIN ANTIBODY 16.1 U/ML (<60.0); THYROID PEROXIDASE ANTIBODY 1013.6 U/ML (<60.0)
== END ==
LOC: M LAB REF 16:16
PROVIDERS: ATTEND Registered Nurse
DX: E03.9 Hypothyroidism, unspecified (principal); R20.2 Paresthesia of skin

== ENCOUNTER 2022-03-30 12:18 | Emergency (ER) | payer MEDICARE, OTHER ==
[~2022-03-30] VITALS: Ht 165.1 cm; Wt 54.9 kg
[2022-03-30] MEDS ORDERED: SYNT75TA (12:28)
[2022-03-30] MEDS ORDERED: METO1TAB32 (12:28)
[2022-03-30] MEDS ORDERED: ACET250T2 (12:28)
[2022-03-30] MEDS ORDERED: TRAV2.5D (12:28)
[2022-03-30] MEDS ORDERED: FLUO1OPD (12:28)
[2022-03-30] MEDS ORDERED: KETOROLAC 30 MG/ML 1ML VIAL IV ONE (13:20)
[2022-03-30 14:56] LABS: BASO % 0.2 % (0.0-1.0); EOS % 0.1 % (0.0-3.0); HEMOGLOBIN 12.9 g/dl (12.0-15.5); LYMPH # 0.8 10^3/uL (1.5-5.0); MEAN CORPUSCULAR HEMOGLOBIN 29.5 pg (27.0-33.0); MEAN CORPUSCULAR HGB CONC 32.3 g/dl (32.0-36.5); MEAN CORPUSCULAR VOLUME 91.5 fl (80.0-96.0); MONO # 0.5 10^3/uL (0.0-0.8); MONO % 5.5 % (2.0-8.0); NEUTROPHILS % 84.9 % (36.0-66.0); PLATELET COUNT, AUTOMATED 182 10^3/uL (150-450); RED BLOOD COUNT 4.37 10^6/uL (4.00-5.40); WHITE BLOOD COUNT 9.4 10^3/uL (4.0-10.0)
[2022-03-30 15:18] LABS: ALBUMIN 3.9 GM/DL (3.2-5.2); BILIRUBIN,DIRECT 0.2 MG/DL (0.0-0.2); BILIRUBIN,TOTAL 0.7 MG/DL (0.2-1.0); CALCIUM LEVEL 9.1 MG/DL (8.8-10.2); CREATININE FOR GFR 1.18 MG/DL (0.55-1.30); GLOMERULAR FILTRATION RATE 47.9 (>39); TOTAL PROTEIN 6.9 GM/DL (6.4-8.2)
[2022-03-30] MEDS ORDERED: KETO10TAB PO (15:26)
[2022-03-30] MEDS ORDERED: FLOM0.4C39 PO (15:27)
[2022-03-30 16:02] VITALS: BP 148/72
== END 2022-03-30 16:06 | disposition home or self-care (01) ==
LOC: M ED 12:18
DX: N20.0 Calculus of kidney (principal); Z88.1 Allergy status to other antibiotic agents; Z79.899 Other long term (current) drug therapy; Z79.890 Hormone replacement therapy
CPT/HCPCS: 74176; 80048; 80076; 81001; 83690; 85025; 96374; 99284; J1885

== ENCOUNTER → 2022-04-12 | Outpatient (REF) | payer MEDICARE, OTHER ==
[~2022-04-12] MED LIST changes: +ACET250T2; +FLOM0.4C39 PO; +FLUO1OPD; +KETO10TAB PO; +METO1TAB32; +SYNT75TA; +TRAV2.5D
[2022-04-19 10:08] LABS: CA Oxalate Dihy 20 % (.); Size 3x3 mm (.)
== END ==
LOC: M SMT 12:44
PROVIDERS: ATTEND Urology
DX: N13.2 Hydronephrosis with renal and ureteral calculous obstruction (principal)

== ENCOUNTER → 2022-08-11 | Outpatient (CLI) | payer MEDICARE, OTHER | LOC: M RAD 10:56 | PROVIDERS: ATTEND Physician Assistant | DX: N20.2 Calculus of kidney with calculus of ureter (principal); N13.0 Hydronephrosis with ureteropelvic junction obstruction ==

== ENCOUNTER → 2022-09-28 | Outpatient (REF) | payer MEDICARE, OTHER | LOC: M SFHCDERM 17:48 | PROVIDERS: ATTEND Physician Assistant | DX: L57.0 Actinic keratosis (principal) ==

== ENCOUNTER → 2022-10-13 | Outpatient (CLI) | payer MEDICARE, OTHER | LOC: M PLAIMG 09:51 | PROVIDERS: ATTEND Physician Assistant | DX: N20.0 Calculus of kidney (principal) ==

== ENCOUNTER → 2022-11-01 | Outpatient (CLI) | payer MEDICARE, OTHER | LOC: M WHC 10:47 | PROVIDERS: ATTEND Internal Medicine | DX: M81.0 Age-related osteoporosis without current pathological fracture (principal) ==

== ENCOUNTER → 2023-05-08 | Outpatient (CLI) | payer MEDICARE, OTHER | LOC: M RAD 10:28 | PROVIDERS: ATTEND Physician Assistant | DX: N20.0 Calculus of kidney (principal) ==

== ENCOUNTER → 2023-06-09 | Outpatient (CLI) | payer MEDICARE, OTHER ==
[2023-06-09 15:29] LABS: BLOOD UREA NITROGEN 25 MG/DL (9-23); CALCIUM LEVEL 9.7 MG/DL (8.3-10.6); CARBON DIOXIDE LEVEL 32 MMOL/L (20-31); CHLORIDE LEVEL 106 MMOL/L (98-107); CREATININE FOR GFR 0.94 MG/DL (0.55-1.30); GLOMERULAR FILTRATION RATE > 60.0 (>39); GLUCOSE, FASTING 82 MG/DL (74-106); POTASSIUM SERUM 4.7 MMOL/L (3.5-5.1); SODIUM LEVEL 142 MMOL/L (136-145)
== END ==
LOC: M PLALAB 10:21
PROVIDERS: ATTEND Internal Medicine Endocrinology, Diabetes & Metabolism
DX: M81.0 Age-related osteoporosis without current pathological fracture (principal)

== ENCOUNTER → 2023-11-08 | Outpatient (CLI) | payer MEDICARE, OTHER | LOC: M RAD 13:47 | PROVIDERS: ATTEND Physician Assistant | DX: N20.0 Calculus of kidney (principal) ==

== ENCOUNTER → 2023-11-21 | Outpatient (CLI) | payer MEDICARE, OTHER ==
[2023-11-21 14:35] LABS: TOTAL 25(OH) VITAMIN D 33.8 NG/ML (20.0-100.0)
== END ==
LOC: M PLALAB 11:06
PROVIDERS: ATTEND Nurse Practitioner Family
DX: M81.0 Age-related osteoporosis without current pathological fracture (principal)

== ENCOUNTER → 2024-01-17 | Outpatient (REF) | payer MEDICARE, OTHER ==
[~2024-01-17] MED LIST changes: +ACET250T18; -ACET250T2
== END ==
LOC: M SFHCDERM 13:22
PROVIDERS: ATTEND Nurse Practitioner Family
DX: D04.22 Carcinoma in situ of skin of left ear and external auricular canal (principal)

== ENCOUNTER 2024-02-29 13:15 | Emergency (ER) | payer MEDICARE, OTHER ==
[~2024-02-29] VITALS: Ht 165.1 cm; Wt 52.1 kg
[2024-02-29 13:15] VITALS: TEMP 97.5
[~2024-02-29 13:15] MED LIST changes: +DOXY-323 PO; -DOXY-443 PO
[2024-02-29 16:32] LABS: BASO % 0.6 % (0.0-1.0); EOS # 0.2 10^3/uL (0.0-0.5); EOS % 2.6 % (0.0-3.0); HEMATOCRIT 34.9 % (36.0-47.0); HEMOGLOBIN 11.6 g/dl (12.0-15.5); LYMPH # 1.6 10^3/uL (1.5-5.0); LYMPH % 23.7 % (24.0-44.0); MEAN CORPUSCULAR HEMOGLOBIN 30.4 pg (27.0-33.0); MEAN CORPUSCULAR HGB CONC 33.2 g/dl (32.0-36.5); MEAN CORPUSCULAR VOLUME 91.6 fl (80.0-96.0); MONO # 0.5 10^3/uL (0.0-0.8); MONO % 7.2 % (2.0-8.0); NEUTROPHILS # 4.5 10^3/uL (1.5-8.5); NEUTROPHILS % 65.6 % (36.0-66.0); PLATELET COUNT, AUTOMATED 186 10^3/uL (150-450); RED BLOOD COUNT 3.81 10^6/uL (4.00-5.40); WHITE BLOOD COUNT 6.9 10^3/uL (4.0-10.0)
[2024-02-29 16:44] LABS: PARTIAL THROMBOPLASTIN TIME 24.2 SECONDS (24.8-34.2); PROTHROMBIN TIME 12.9 SECONDS (12.5-14.5)
[2024-02-29 17:19] LABS: ALBUMIN 4.2 G/DL (3.2-5.2); BILIRUBIN,DIRECT 0.1 MG/DL (<0.4); BILIRUBIN,TOTAL 0.5 MG/DL (0.3-1.2); CREATININE FOR GFR 1.55 MG/DL (0.55-1.30); GLOMERULAR FILTRATION RATE 34.8 (>39); POTASSIUM SERUM 3.8 MMOL/L (3.5-5.1); TOTAL PROTEIN 7.1 G/DL (5.7-8.2)
[2024-02-29 17:26] LABS: CALCIUM LEVEL 12.5 MG/DL (8.3-10.6)
[2024-02-29 19:51] VITALS: BP 124/73; O2SAT 100
[2024-03-01] MEDS ORDERED: AMOX875T2 PO (16:49)
== END 2024-02-29 21:33 | disposition left against medical advice (07) ==
LOC: M ED 13:15
DX: Z53.21 Procedure and treatment not carried out due to patient leaving prior to being seen by health care provider (principal)

== ENCOUNTER 2024-03-01 10:34 | Emergency (ER) | payer MEDICARE, OTHER ==
[~2024-03-01] VITALS: Ht 165.1 cm; Wt 53.0 kg
[2024-03-01 15:43] LABS: BASO % 0.6 % (0.0-1.0); EOS # 0.2 10^3/uL (0.0-0.5); EOS % 2.4 % (0.0-3.0); HEMATOCRIT 35.8 % (36.0-47.0); HEMOGLOBIN 11.7 g/dl (12.0-15.5); LYMPH # 1.6 10^3/uL (1.5-5.0); MEAN CORPUSCULAR HEMOGLOBIN 30.4 pg (27.0-33.0); MEAN CORPUSCULAR HGB CONC 32.7 g/dl (32.0-36.5); MONO # 0.5 10^3/uL (0.0-0.8); MONO % 7.7 % (2.0-8.0); PLATELET COUNT, AUTOMATED 186 10^3/uL (150-450); RED BLOOD COUNT 3.85 10^6/uL (4.00-5.40); WHITE BLOOD COUNT 6.3 10^3/uL (4.0-10.0)
[2024-03-01] MEDS: NS 500 ML IV ONE (15:44)
[2024-03-01] MEDS ORDERED: ISOVUE-370 76% 100ML VIAL As Ordered ONE (15:45)
[2024-03-01 15:53] LABS: AMORPHOUS SEDIMENT SMALL (NEGATIVE); APPEARANCE, URINE CLOUDY (CLEAR); BACTERIA, URINE AUTO NEGATIVE (NEGATIVE); BILIRUBIN, URINE AUTO NEGATIVE (NEGATIVE); BLOOD, URINE BLOOD NEGATIVE (NEGATIVE); COLOR, URINE YELLOW (YELLOW); GLUCOSE, URINE (UA) AUTO NEGATIVE (NEGATIVE); KETONE, URINE AUTO NEGATIVE (NEGATIVE); LEUKOCYTE ESTERASE, URINE AUTO TRACE (NEGATIVE); NITRITE, URINE AUTO NEGATIVE (NEGATIVE); PROTEIN, URINE AUTO NEGATIVE (NEGATIVE); RBC, URINE AUTO 0 /HPF (0-3); SQUAMOUS EPITHELIAL CELL UR AU 0 /HPF (0-6); UROBILINOGEN, URINE AUTO 0.2 mg/dL (0.0-2.0); WBC, URINE AUTO 5 /HPF (0-3)
[2024-03-01 16:07] LABS: LIPASE 41 U/L (12-53)
[2024-03-01 16:10] LABS: ALBUMIN 4.2 G/DL (3.2-5.2); ALKALINE PHOSPHATASE 75 U/L (46-116); ALT/SGPT 25 U/L (7.0-40); AST/SGOT 24 U/L (<34); BILIRUBIN,DIRECT < 0.1 MG/DL (<0.4); BILIRUBIN,TOTAL 0.3 MG/DL (0.3-1.2); BLOOD UREA NITROGEN 31 MG/DL (9-23); CALCIUM LEVEL 11.7 MG/DL (8.3-10.6); CARBON DIOXIDE LEVEL 31 MMOL/L (20-31); CHLORIDE LEVEL 105 MMOL/L (98-107); CREATININE FOR GFR 1.55 MG/DL (0.55-1.30); GLOMERULAR FILTRATION RATE 34.8 (>39); GLUCOSE, FASTING 92 MG/DL (74-106); POTASSIUM SERUM 4.1 MMOL/L (3.5-5.1); SODIUM LEVEL 141 MMOL/L (136-145); TOTAL PROTEIN 7.2 G/DL (5.7-8.2)
[2024-03-01] MEDS ORDERED: AMOX875T2 PO (16:49)
[2024-03-01 16:59] VITALS: BP 130/80; TEMP 97.3; O2SAT 97
== END 2024-03-01 17:04 | disposition home or self-care (01) ==
LOC: M ED 10:34
DX: N39.0 Urinary tract infection, site not specified (principal); K52.9 Noninfective gastroenteritis and colitis, unspecified; I48.91 Unspecified atrial fibrillation; E03.9 Hypothyroidism, unspecified; Z88.8 Allergy status to other drugs, medicaments and biological substances; Z79.2 Long term (current) use of antibiotics; Z79.899 Other long term (current) drug therapy
CPT/HCPCS: 74177; 80047; 80048; 80076; 81001; 83690; 85025; 87507; 96360; 99284; Q9967

== ENCOUNTER → 2024-05-02 | Outpatient (CLI) | payer MEDICARE, OTHER ==
[~2024-05-02] MED LIST changes: +AMOX875T2 PO
== END ==
LOC: M RAD 12:22
PROVIDERS: ATTEND Physician Assistant
DX: N20.0 Calculus of kidney (principal)

== ENCOUNTER → 2024-05-28 | Outpatient (CLI) | payer MEDICARE, OTHER ==
[2024-05-28 13:32] LABS: CALCIUM LEVEL 10.3 MG/DL (8.3-10.6); CREATININE FOR GFR 1.57 MG/DL (0.55-1.30); GLOMERULAR FILTRATION RATE 34.3 (>39); POTASSIUM SERUM 3.9 MMOL/L (3.5-5.1); TOTAL 25(OH) VITAMIN D 100.2 NG/ML (20.0-100.0)
== END ==
LOC: M LAB 12:19
PROVIDERS: ATTEND Internal Medicine Endocrinology, Diabetes & Metabolism
DX: M81.0 Age-related osteoporosis without current pathological fracture (principal)

== ENCOUNTER → 2024-05-31 | Outpatient (REF) | payer MEDICARE, OTHER ==
[2024-05-31 17:25] LABS: AMORPHOUS SEDIMENT SMALL (NEGATIVE); APPEARANCE, URINE CLOUDY (CLEAR); BACTERIA, URINE AUTO NEGATIVE (NEGATIVE); BILIRUBIN, URINE AUTO NEGATIVE (NEGATIVE); BLOOD, URINE BLOOD NEGATIVE (NEGATIVE); COLOR, URINE YELLOW (YELLOW); GLUCOSE, URINE (UA) AUTO NEGATIVE (NEGATIVE); KETONE, URINE AUTO NEGATIVE (NEGATIVE); LEUKOCYTE ESTERASE, URINE AUTO NEGATIVE (NEGATIVE); NITRITE, URINE AUTO NEGATIVE (NEGATIVE); PROTEIN, URINE AUTO NEGATIVE (NEGATIVE); RBC, URINE AUTO 0 /HPF (0-3); SPECIFIC GRAVITY URINE AUTO 1.011 (1.002-1.035); SQUAMOUS EPITHELIAL CELL UR AU 0 /HPF (0-6); UROBILINOGEN, URINE AUTO 0.2 mg/dL (0.0-2.0); WBC, URINE AUTO 0 /HPF (0-3)
== END ==
LOC: M LAB REF 16:30
PROVIDERS: ATTEND Internal Medicine
DX: N20.0 Calculus of kidney (principal); M79.605 Pain in left leg

== ENCOUNTER → 2024-07-09 | Outpatient (CLI) | payer MEDICARE, OTHER ==
[~2024-07-09] MED LIST changes: -DOXY-323 PO; +DOXY-441 PO
[2024-07-09 12:12] LABS: CALCIUM LEVEL 10.5 MG/DL (8.3-10.6); CREATININE FOR GFR 1.3 MG/DL (0.55-1.30); GLOMERULAR FILTRATION RATE 42.6 (>39); POTASSIUM SERUM 4.4 MMOL/L (3.5-5.1)
[2024-07-09 12:13] LABS: TOTAL 25(OH) VITAMIN D 79.8 NG/ML (20.0-100.0)
== END ==
LOC: M LAB 11:13
PROVIDERS: ATTEND Nurse Practitioner Family
DX: M81.0 Age-related osteoporosis without current pathological fracture (principal)

== ENCOUNTER 2024-08-08 08:08 | Day surgery (SDC) | payer MEDICARE, OTHER ==
[~2024-08-08] VITALS: Ht 162.6 cm; Wt 51.2 kg
[~2024-08-08 08:08] MED LIST changes: -ACET250T18; +ACET250T18 PO; +ALCA5DRO; +BUPR15TASR PO; +LEVO100T5 PO; +LEVO75TA4 PO; +LIDOCAINE 2% 100MG/5ML SDV (FOR ANES.) As Ordered ONE; +MAGN500C2 PO; -METO1TAB32; +METO1TAB32 PO; +NS 250 ML IV ONE; +RA T500C2 PO; +REST0.05; +RHOP0.02; +THERTAB52 PO; +TIMO0.5S20; +[UNRECOGNIZED DRUG - CODE] SQ; +propofoL 200 MG/20 ML VIAL As Ordered ONE
[2024-08-08 09:00] VITALS: TEMP 97
[2024-08-08 09:15] VITALS: BP 118/60; O2SAT 100
== END 2024-08-08 09:20 | disposition home or self-care (01) ==
LOC: M OPP 08:08
PROVIDERS: ATTEND Surgery
DX: Z12.11 Encounter for screening for malignant neoplasm of colon (principal); K57.30 Diverticulosis of large intestine without perforation or abscess without bleeding; Z86.0100 Personal history of colon polyps, unspecified; I10 Essential (primary) hypertension; I48.91 Unspecified atrial fibrillation; E03.9 Hypothyroidism, unspecified; I73.00 Raynaud's syndrome without gangrene; Z79.899 Other long term (current) drug therapy; Z79.890 Hormone replacement therapy; Z88.1 Allergy status to other antibiotic agents; Z90.710 Acquired absence of both cervix and uterus

== ENCOUNTER → 2024-08-16 | Outpatient (CLI) | payer MEDICARE, OTHER ==
[~2024-08-16] MED LIST changes: -LIDOCAINE 2% 100MG/5ML SDV (FOR ANES.) As Ordered ONE; -NS 250 ML IV ONE; -propofoL 200 MG/20 ML VIAL As Ordered ONE
[2024-08-16 12:34] LABS: TOTAL 25(OH) VITAMIN D 64.9 NG/ML (20.0-100.0)
[2024-08-16 12:40] LABS: CALCIUM LEVEL 9.3 MG/DL (8.3-10.6); CREATININE FOR GFR 1.18 MG/DL (0.55-1.30); GLOMERULAR FILTRATION RATE 47.5 (>39); POTASSIUM SERUM 4.2 MMOL/L (3.5-5.1)
== END ==
LOC: M LAB 11:34
PROVIDERS: ATTEND Nurse Practitioner Family
DX: M81.0 Age-related osteoporosis without current pathological fracture (principal)

== ENCOUNTER → 2024-10-28 | Outpatient (CLI) | payer MEDICARE, OTHER ==
[2024-10-28 11:26] LABS: CALCIUM LEVEL 8.7 MG/DL (8.3-10.6); CREATININE FOR GFR 1.39 MG/DL (0.55-1.30); GLOMERULAR FILTRATION RATE 39.3 (>39); POTASSIUM SERUM 4.1 MMOL/L (3.5-5.1)
[2024-10-28 11:31] LABS: TOTAL 25(OH) VITAMIN D 46.5 NG/ML (20.0-100.0)
== END ==
LOC: M LAB 09:53
PROVIDERS: ATTEND Nurse Practitioner Family
DX: M81.0 Age-related osteoporosis without current pathological fracture (principal)

== ENCOUNTER → 2024-11-06 | Outpatient (CLI) | payer MEDICARE, OTHER | LOC: M WHC 14:02 | PROVIDERS: ATTEND Nurse Practitioner Family | DX: M81.0 Age-related osteoporosis without current pathological fracture (principal) ==

== ENCOUNTER → 2024-11-07 | Outpatient (CLI) | payer MEDICARE, OTHER | LOC: M RAD 11:38 | PROVIDERS: ATTEND Physician Assistant | DX: N20.0 Calculus of kidney (principal) ==

== ENCOUNTER → 2025-02-05 | Outpatient (CLI) | payer MEDICARE, OTHER ==
[~2025-02-05] MED LIST changes: -FLOM0.4C39 PO; +TAMS-18 PO
[2025-02-05 15:44] LABS: CREATININE FOR GFR 1.51 MG/DL (0.55-1.30); GLOMERULAR FILTRATION RATE 35.8 (>39); POTASSIUM SERUM 4.1 MMOL/L (3.5-5.1)
== END ==
LOC: M LAB 14:46
PROVIDERS: ATTEND Nurse Practitioner Family
DX: M81.0 Age-related osteoporosis without current pathological fracture (principal)

== ENCOUNTER → 2025-03-19 | Outpatient (CLI) | payer MEDICARE, OTHER ==
[~2025-03-19] MED LIST changes: -RA T500C2 PO; +TURM500C10 PO
== END ==
LOC: M RAD 09:03
PROVIDERS: ATTEND Internal Medicine Nephrology
DX: I12.9 Hypertensive chronic kidney disease with stage 1 through stage 4 chronic kidney disease, or unspecified chronic kidney disease (principal); N18.32 Chronic kidney disease, stage 3b; N20.0 Calculus of kidney

== ENCOUNTER → 2025-04-09 | Outpatient (REF) | payer MEDICARE, OTHER ==
[~2025-04-09] MED LIST changes: +RA T500C2 PO; -TURM500C10 PO
== END ==
LOC: M LAB REF 11:28
PROVIDERS: ATTEND Internal Medicine Gastroenterology
DX: K59.1 Functional diarrhea (principal); R10.9 Unspecified abdominal pain; R63.4 Abnormal weight loss; R14.1 Gas pain

== ENCOUNTER → 2025-04-17 | Outpatient (REF) | payer MEDICARE, OTHER ==
[~2025-04-17] MED LIST changes: -RA T500C2 PO; +TURM500C10 PO
== END ==
LOC: M SFHCDERM 13:28
PROVIDERS: ATTEND Nurse Practitioner Family
DX: D49.2 Neoplasm of unspecified behavior of bone, soft tissue, and skin (principal)

== ENCOUNTER → 2025-04-30 | Outpatient (CLI) | payer MEDICARE, OTHER | LOC: M RAD 11:07 | PROVIDERS: ATTEND Physician Assistant | DX: N20.0 Calculus of kidney (principal) ==

== ENCOUNTER → 2025-07-23 | Outpatient (REF) | payer MEDICARE, OTHER | LOC: M SFHCDERM 17:03 | PROVIDERS: ATTEND Dermatology | DX: T14.90XD Injury, unspecified, subsequent encounter (principal) ==

== ENCOUNTER → 2025-07-31 | Outpatient (CLI) | payer MEDICARE, OTHER ==
[2025-07-31 11:58] LABS: CALCIUM LEVEL 9.2 MG/DL (8.3-10.6); CARBON DIOXIDE LEVEL 26.0 MMOL/L (20-31); CHLORIDE LEVEL 109.0 MMOL/L (98-107); CREATININE FOR GFR 1.22 MG/DL (0.55-1.30); GLOMERULAR FILTRATION RATE 46.0 (>39); POTASSIUM SERUM 4.7 MMOL/L (3.5-5.1); SODIUM LEVEL 143.0 MMOL/L (136-145)
[2025-07-31 12:00] LABS: TOTAL 25(OH) VITAMIN D 42.3 NG/ML (20.0-100.0)
== END ==
LOC: M LAB 10:38
PROVIDERS: ATTEND Nurse Practitioner Family
DX: M81.0 Age-related osteoporosis without current pathological fracture (principal)